=== PATIENT | female | born 1995 | race African-American/Black ===

== ENCOUNTER 2021-04-09 18:17 | Emergency (ER) | payer SELFPAY ==
[2021-04-09 18:48] VITALS: BP 147/77; PULSE 81; RESP 16; TEMP 36.9; O2SAT 100
--- NOTE | 2021-04-09 22:48 | PC.NURSE ---
Patient states she is leaving. She states she is going home. Patient left ED with a steady gait with her family member.
== END 2021-04-09 22:48 | disposition left against medical advice (07) ==
LOC: ANHED 23:00
DX: Z53.21 Procedure and treatment not carried out due to patient leaving prior to being seen by health care provider (principal)
CPT/HCPCS: 99199